=== PATIENT | male | born 1970 | race Caucasian/White ===

== ENCOUNTER 2016-08-18 20:16 | Emergency (ER) | payer BC ==
[~2016-08-18] VITALS: Ht 177.8 cm; Wt 74.8 kg
--- NOTE | 2016-08-18 20:35 | NUR ---
Patient discharged to home in stable conditon. Written and verbal after care instructions given. Patient verbalizes understanding of instructions. walked out of ER with steady gait
== END 2016-08-18 20:36 | disposition home or self-care (01) ==
LOC: ER 20:16
DX: H66.91 Otitis media, unspecified, right ear (principal); R42 Dizziness and giddiness; Z88.1 Allergy status to other antibiotic agents
CPT/HCPCS: A4663

== ENCOUNTER 2021-05-06 12:49 | Emergency (ER) | payer BC ==
[~2021-05-06] VITALS: Ht 177.8 cm; Wt 74.8 kg
--- NOTE | 2021-05-06 12:54 | NUR ---
Pt was triaged and placed back in the ER waiting room. There are no ER beds available at this time.
--- NOTE | 2021-05-06 13:00 | NUR ---
Pt was seen by in the ER waiting room and EKG was done at [facility].
[2021-05-06 14:07] LABS: HEMATOCRIT 37.9 % (36.7-47.1); MEAN CORPUSCULAR HEMOGLOBIN 32.1 uug (23.8-33.4); MEAN CORPUSCULAR VOLUME 91.9 fL (73.0-96.2); PLATELET COUNT (AUTO) 217 K/uL (152-348)
[2021-05-06] MEDS ORDERED: IOHEXOL 300MG/ML 100 ML INFUS..BTL ONE (14:18)
[2021-05-06] MEDS ORDERED: SWABABLE VALVE TRANSFER SET EA MC ONE (14:18)
[2021-05-06] MEDS ORDERED: IV NORMAL SALINE 250 ML IV ONE (14:18)
[2021-05-06 14:19] LABS: CREATININE 0.9 mg/dL (0.6-1.3); POTASSIUM 3.9 mmol/L (3.5-5.1)
--- NOTE | 2021-05-06 14:20 | NUR ---
spoke with pt about CT abd/pelvis with IV contrast. Saline Lock started to RAC, pt signed consent for procedure.
[2021-05-06 14:33] LABS: BILIRUBIN,DIRECT 0.1 mg/dL (0.0-0.2); BILIRUBIN,TOTAL 0.5 mg/dL (0.2-1.0); TOTAL PROTEIN, SERUM 7.5 g/dL (6.4-8.2)
--- NOTE | 2021-05-06 16:09 | NUR ---
Patient discharged to home in stable condition. Written and verbal after care instructions given. Patient verbalizes understanding of instructions. Stressed follow up or return to ER for worsening s/s.
== END 2021-05-06 16:10 | disposition home or self-care (01) ==
LOC: ER 12:49
DX: R10.12 Left upper quadrant pain (principal); R07.89 Other chest pain; N28.1 Cyst of kidney, acquired; R00.1 Bradycardia, unspecified
CPT/HCPCS: 36415; 71045; 74176; 74177; 80048; 80076; 83690; 84484; 85025; 93005; 99285; Q9967; 70030-TC; A4663; J7050

== ENCOUNTER 2024-04-10 18:09 | Emergency (ER) | payer BC, OTHER ==
[~2024-04-10] VITALS: Ht 177.8 cm; Wt 79.4 kg
[2024-04-10] MEDS ORDERED: KETOROLAC TROMETHAMINE 30 MG INJ ONE (19:02)
[2024-04-10 19:06] LABS: BASOPHILS % (AUTO) 0.7 % (0.0-2.0); EOSINOPHILS # (AUTO) 0.1 K/uL (0.0-0.7); EOSINOPHILS % (AUTO) 1.9 % (0.0-7.0); HEMATOCRIT 41.9 % (36.7-47.1); HEMOGLOBIN 14.2 g/dL (12.5-16.3); LYMPHOCYTES % (AUTO) 29.7 % (20.5-51.5); MEAN CORPUSCULAR HEMOGLOBIN 31.6 uug (23.8-33.4); MEAN CORPUSCULAR HGB CONC 34 g/dL (32.5-36.3); MEAN CORPUSCULAR VOLUME 93.5 fL (73.0-96.2); MONOCYTES # (AUTO) 0.8 K/uL (0.1-1.30); MONOCYTES % (AUTO) 12.1 % (0.0-11.0); NEUTROPHILS # (AUTO) 3.8 K/uL (1.8-8.9); NEUTROPHILS % (AUTO) 55.6 % (38.5-71.5); PLATELET COUNT (AUTO) 253 K/uL (152-348); RED BLOOD CELL COUNT(AUTO) 4.48 MIL/uL (4.06-5.63); RED CELL DISTRIBUTION WIDTH 12.3 % (12.1-16.2); WHITE BLOOD COUNT (AUTO) 6.9 K/uL (3.6-10.2)
[2024-04-10 19:07] LABS: DIFFERENTIAL COMMENT 1
[2024-04-10 19:11] LABS: *BILIRUBIN,URIN NEGATIVE (NEGATIVE); *BLOOD, URINE NEGATIVE (NEGATIVE); *CLARITY,URINE CLEAR (CLEAR); *COLOR,URINE YELLOW (YELLOW); *KETONES,URINE NEGATIVE (NEGATIVE); *PROTEIN,URINE NEGATIVE (NEGATIVE); *UROBILINOGEN,URINE 0.2 E.U./dl (NORMAL); LEUKOCYTE ESTERASE ,URINE NEGATIVE (NEGATIVE); NITRITE, URINE NEGATIVE (NEGATIVE); UGLUCOSE NEGATIVE (NEGATIVE)
[2024-04-10 19:12] LABS: CALCIUM 9.4 mg/dL (8.5-10.1); CARBON DIOXIDE 30 mmol/L (21-32); CHLORIDE 100 mmol/L (98-107); CREATININE 1.1 mg/dL (0.6-1.3); GLUCOSE 100 mg/dL (74-106); POTASSIUM 3.9 mmol/L (3.5-5.1); SODIUM SERUM 140 mmol/L (136-145); UREA NITROGEN, BLOOD 15 mg/dL (7-18)
[2024-04-10 19:13] LABS: ETHANOL < 3 MG/DL (0-10)
[2024-04-10] MEDS: KETOROLAC TROMETHAMINE 30 MG INJ IVP ONE (19:15)
[2024-04-10 19:18] LABS: ALANINE AMINOTRANSFERASE 27 U/L (16-63); ALBUMIN 4.1 g/dL (3.4-5.0); ALKALINE PHOSPHATASE 74 U/L (50-136); ASPARTATE AMINOTRANSFERASE 17 U/L (15-37); BILIRUBIN,TOTAL 0.5 mg/dL (0.2-1.0); LIPASE 38 U/L (16-77); TOTAL PROTEIN, SERUM 7.9 g/dL (6.4-8.2)
[2024-04-10 19:19] LABS: *AMPHETAMINE, URINE NEGATIVE (NEGATIVE); *BARBITURATE, URINE NEGATIVE (NEGATIVE); *BENZODIAZEPINE, URINE NEGATIVE (NEGATIVE); *CANNABINOID, URINE NEGATIVE (NEGATIVE); *COCCAINE, URINE NEGATIVE (NEGATIVE); *OPIATE, URINE NEGATIVE (NEGATIVE); *PHENCYCLIDINE SCREEN,URINE NEGATIVE (NEGATIVE); FENTANYL, URINE NEGATIVE (NEGATIVE)
[2024-04-10 21:11] VITALS: BP 110/71; TEMP 98; O2SAT 98
== END 2024-04-10 21:12 | disposition home or self-care (01) ==
LOC: ER 18:09
DX: R10.11 Right upper quadrant pain (principal); I48.91 Unspecified atrial fibrillation; Z88.1 Allergy status to other antibiotic agents; Z88.7 Allergy status to serum and vaccine
CPT/HCPCS: 80053; 81003; 83690; 85025; 36415; 74176; 76705; 99285; 96374; 80320; 80307; J1885; A4606; A4663; G0480